=== PATIENT | male | born 1975 | race Caucasian/White ===

== ENCOUNTER 2021-07-24 14:39 | Emergency (ER) | payer OTHER, SELFPAY ==
[2021-07-24 14:43] VITALS: BP 141/82; PULSE 90; RESP 14; TEMP 36.6; O2SAT 99
--- NOTE | 2021-07-24 14:50 | ED.GENADUL_ITS ---
Discharge Plan Disposition Patient Disposition: HOME Condition: Good Discharge Details Clinical Impression: Knee laceration Primary Care Provider: Unknown,Unknown ED Provider: Jay Sheehan Home Meds and New Rx's Prescriptions: No Action No Known Home Meds RF: 0 Discharge Instructions Instructions: Laceration (ED), Skin Adhesive Care (ED) Additional Instructions: At this time 3 absorbable sutures have been placed, they will fall out on their own. Please keep the area dry and do not soak it. If you notice any redness drainage or discharge please return as this may represent an infection. Eventually the superficial skin that was scraped off will likely fall off and/or . When this happens there'll be some white granulation tissue underneath it, this is normal. Please continue to clean the area gently with soap and water every day after this occurs. If you notice any worsening of your symptoms, or any new symptoms such as vomiting, diarrhea, fever, chills, shortness of breath, chest pain, numbness, weakness, or fainting , please return immediately to the emergency department for reevaluation. Please follow up with your primary care provider as soon as possible for reassessment and reevaluation. As always, it was a pleasure participating in your medical care today. Medical Decision Making 46-year-old male with no significant past medical history presents today for evaluation of abrasion to the right knee. Patient was out biking when he fell and scraped his knee. He did not hit hard, and denies any knee pain itself, but does have mild pain in the area of the abrasion. The abrasion caused a small flap of skin on the lateral aspect. He cleaned the area and came in for further assessment. He denies any weakness or pain with movement. No other complaints at this time. No other modifying factors Patient demonstrates a flap of skin that is abraded off, diameter is roughly 1 cm. No active bleeding. No evidence of joint involvement or bony presents. No evidence of tendon or ligament presence. Area is notably superficial. Tetanus is up-to-date. The area will be cleaned, and suture. 3:17 PM The area was extensively scrubbed and washed with Icar normal saline, the area was then scrubbed with chlorhexidine. Patient tolerated this well. All during debris were removed. 3 simple interrupted sutures using chromic gut were then placed per wound edge reapproximation, and then the area was Dermabonded at the request of the patient over the preference of sutures. The skin flap area is slightly avascular due to the superficial nature of the abrasion and I did discuss with the patient that this will likely fall off at some point. After this this fall off there will be the granulation tissue underneath it. Discussed red flags which return including the importance of looking for signs of infection which would represent redness or discharge. I have extensively reviewed the treatment plan and discharge instructions with the patient and their family. I have addressed all patient concerns at this time. The patient and family was made aware of what symptoms to monitor for that would warrant a return to the emergency department. Discussed the plan with the patient and family, they demonstrate verbal understanding and agreement with our assessment and plan at this time. The documentation in this chart was dictated using [employer] dictation software. Please excuse any dictation errors. HPI General Date/Time Provider Initiated Documentation: 07/24/21 14:44 . HPI Narrative: 46-year-old male with no significant past medical history presents to day for evaluation of abrasion to the right knee. Patient was out biking when he fell and scraped his knee. He did not hit hard, and denies any knee pain itself, but does have mild pain in the area of the abrasion. The abrasion caused a small flap of skin on the lateral aspect. He cleaned the area and came in for further assessment. He denies any weakness or pain with movement. No other complaints at this time. No other modifying factors Related Data Home Medications Medication Instructions Recorded Confirmed Unknown [No Known Home Meds] 07/24/21 07/24/21 Allergies Allergy/AdvReac Type Severity Reaction Status Date / Time No Known Allergies Allergy Unverified 07/24/21 14:49 General Stated Complaint: Laceration PRICILA: 4 Review of Systems All systems reviewed & are unremarkable except as noted in HPI and below [facility] Social History Smoking/Tobacco Use Status: Never Smoking risk assessment performed?: Yes Alcohol Intake: current Alcohol Intake frequency: a few times a week Drug use: Never Substance use type: does not use Do you feel safe at home: Yes Do you feel safe in your relationship?: Yes Exam Narrative Exam Narrative: 1.Const: Well-nourished, Well-developed, appearing stated age 2.Eyes: PERRL, no conjunctival injection, and symmetrical lids. 3.ENT: Atraumatic external nose and ears. Moist MM. Neck: Symmetric, trachea midline, No thyromegaly. 4.CVS: +S1/S2, No murmurs or gallops. Peripheral pulses 2+ and equal in all extremities. Brisk capillary refill in all extremities. 5.RESP: Unlabored respiratory effort. Clear to auscultation bilaterally. No wheezes rales or rhonchi 6.GI: Soft, Nontender/Nondistended, No hepatosplenomegaly. No guarding or rebound. 7.MSK: Patient's right knee demonstrates a small horseshoe-shaped flap of skin with a diameter of roughly 1 cm. It is superficial, there is no evidence of invasion into the joint space. No evidence of tendon involvement. 8.Skin: No active bleeding. Please see musculoskeletal 9.Neuro: trimming inspector II-XII grossly intact. Sensation grossly intact, no focal neurologic deficits. 10.Psych: (AAO) x3. Appropriate mood and affect Course Vital Signs Vital signs: Vital Signs Temperature 36.6 C 07/24/21 14:43 Pulse 90 07/24/21 14:43 Respiratory Rate 14 07/24/21 14:43 Blood Pressure 141/82 H 07/24/21 14:43 Pulse Oximetry 99 07/24/21 14:43 Temperature 36.6 C 07/24/21 14:43 Temperature Source Skin 07/24/21 14:43 Pulse 90 07/24/21 14:43 Respiratory Rate 14 07/24/21 14:43 Blood Pressure 141/82 H 07/24/21 14:43 Pulse Oximetry 99 07/24/21 14:43 Oxygen Delivery Method Room Air 07/24/21 14:43 Oxygen Flow Rate 0 07/24/21 14:43 Pain Level 2 07/24/21 14:43 Procedures Laceration Laceration 1: Site: lower extremity Side (If applicable): right Description: flap Depth: simple, single layer Local Anesthetic: Lidocaine 1% and with Epi Amount of anesthesia used (mL): 3 Pre-repair: wound explored, irrigated extensively and deep structures intact Skin layer closed with: other (chromic gut) Size (cm): 5-0 Number of sutures: 3 Technique: simple, interrupted
[2021-07-24] MEDS: Lidocaine/Epinephri/Tetracaine Topical Gel 3 ML (14:52)
== END 2021-07-24 15:22 | disposition home or self-care (01) ==
PROVIDERS: Emergency Provider Student in an Organized Health Care Education/Training Program
DX: S81.011A Laceration without foreign body, right knee, initial encounter (principal); V19.9XXA Pedal cyclist (driver) (passenger) injured in unspecified traffic accident, initial encounter
CPT/HCPCS: 12001